=== PATIENT | female | born 1985 | race Caucasian/White ===

== ENCOUNTER 2024-06-15 09:45 | Emergency (ER) | payer MEDICAID ==
[~2024-06-15] VITALS: Ht 165.1 cm; Wt 80.0 kg
[2024-06-15 09:48] VITALS: BP 115/74; PULSE 71; RESP 16; O2SAT 96
[2024-06-15] MEDS ORDERED: CEPH500C2 PO (10:20)
[2024-06-15] MEDS ORDERED: TERB30CR8 TOP (10:20)
[2024-06-15 10:29] VITALS: TEMP 97.8
== END 2024-06-15 10:31 | disposition home or self-care (01) ==
LOC: ER 09:46
DX: L03.115 Cellulitis of right lower limb (principal); Z79.2 Long term (current) use of antibiotics
CPT/HCPCS: 99283

== ENCOUNTER 2024-08-16 21:39 | Emergency (ER) | payer MEDICAID ==
[~2024-08-16] VITALS: Ht 165.1 cm; Wt 75.9 kg
[~2024-08-16 21:39] MED LIST: TERB30CR8 TOP
[2024-08-16 22:32] LABS: BASOPHILS % (AUTO) 0.6 % (0-1); EOSINOPHILS % (AUTO) 0.6 % (0-6); HEMATOCRIT 37.8 % (35.0-45.0); HEMOGLOBIN 13.3 g/dl (12.0-16.0); LYMPHOCYTES # (AUTO) 1.3 X10'3 (1.1-4.8); LYMPHOCYTES % (AUTO) 20.1 % (21-51); MEAN CORPUSCULAR HEMOGLOBIN 30.9 PG (27.0-31.0); MEAN CORPUSCULAR HGB CONC 35.3 g/dL (33.0-36.5); MEAN CORPUSCULAR VOLUME 87.7 FL (78-98); MEAN PLATELET VOLUME 7.8 FL (7.4-10.4); MONOCYTES # (AUTO) 0.5 X10'3 (0-0.9); MONOCYTES % (AUTO) 8.2 % (2-12); NEUTROPHILS # (AUTO) 4.5 X10'3 (1.8-7.7); NEUTROPHILS % (AUTO) 70.5 % (42-75); PLATELET COUNT 362 X10'3 (140-440); RED BLOOD COUNT 4.31 X10'6 (4.20-5.60); RED CELL DISTRIBUTION WIDTH 13.1 % (11.5-14.5); WHITE BLOOD COUNT 6.4 X10'3 (4.5-11.0)
[2024-08-16 22:45] LABS: ALANINE AMINOTRANSFERASE 97 U/L (12-78); ALBUMIN 3.8 G/DL (3.4-5.0); ALKALINE PHOSPHATASE 99 IU/L (46-116); ANION GAP 5 (8-16); ASPARTATE AMINO TRANSFERASE 48 U/L (10-37); BILIRUBIN,TOTAL 0.3 MG/DL (0.1-1.0); BLOOD UREA NITROGEN 8 MG/DL (7-18); BUN/CREATININE RATIO 15.7 (10.0-20.0); CALCIUM 8.7 MG/DL (8.5-10.1); CHLORIDE 106 MMOL/L (99-107); CREATININE 0.51 MG/DL (0.40-0.90); GLUCOSE 98 MG/DL (70-104); POTASSIUM 3.1 MMOL/L (3.5-5.1); SODIUM 139 MMOL/L (135-145); TOTAL CARBON DIOXIDE 28.2 MMOL/L (24-32); TOTAL PROTEIN 7.8 G/DL (6.4-8.2); eCRCL 136 ML/MIN; eGFR > 90 ML/MIN
[2024-08-16 22:53] LABS: ETHANOL < 10 MG/DL (<10); THYROID STIMULATING HORMONE 4.11 ulU/ml (0.34-4.50)
[2024-08-16] MEDS: olanzapine 10mg tablet PO STA (23:11)
[2024-08-16 23:18] LABS: URINE HCG NEGATIVE (NEG)
[2024-08-16 23:20] LABS: ACETAMINOPHEN < 2.0 UG/ML (10-30)
[2024-08-16 23:32] LABS: BILIRUBIN,URINE NEGATIVE (Neg); CLARITY,URINE SLIGHTLY CLOUDY (Clear); COLOR,URINE YELLOW (Yellow); GLUCOSE, URINE NEGATIVE (Neg); KETONES,URINE >=80 mg/dl (Neg); LEUKOCYTE ESTERASE ,URINE NEGATIVE (Neg); NITRITES, URINE NEGATIVE (Neg); OCCULT BLOOD,URINE NEGATIVE (Neg); PH,URINE 6.5 (4.8-8.0); PROTEIN,URINE NEGATIVE (Neg)
[2024-08-16 23:34] LABS: URINE AMPHETAMINE SCREEN POSITIVE (Neg); URINE BARBITUATE SCREEN NEGATIVE (Neg); URINE BENZODIAZEPINES SCREEN NEGATIVE (Neg); URINE CANNABINOID SCREEN NEGATIVE (Neg); URINE COCAINE SCREEN NEGATIVE (Neg); URINE METHADONE SCREEN NEGATIVE (Neg); URINE OPIATE SCREEN NEGATIVE (Neg); URINE PHENCYCLIDINE SCREEN NEGATIVE (Neg)
[2024-08-16 23:47] LABS: UA COLLECTION TYPE VOIDED
[2024-08-16 23:51] LABS: BACTERIA,URINE 2+ /HPF (Neg); SQUAMOUS EPITHELIAL CELL,UR MANY /LPF (FEW)
[2024-08-16 23:52] LABS: RBC,URINE NONE SEEN /HPF (0-2)
[2024-08-17] MEDS: potassium Cl 20 mEq SR tablet PO STA (05:11)
[2024-08-17] MEDS: diphenhydrAMINE 50 mg/ml inj IM ONE (10:53)
[2024-08-17] MEDS: midazolam 1 mg/ML 2ml injection IM ONE (10:53)
[2024-08-17] MEDS: haloperidol lactate 5mg/ml inj IM ONE (10:53)
[2024-08-17 17:15] VITALS: BP 115/82; PULSE 98; RESP 18; TEMP 97.6; O2SAT 99
== END 2024-08-17 17:18 | disposition still patient (30) ==
LOC: ER 21:39
DX: F20.0 Paranoid schizophrenia (principal); F99 Mental disorder, not otherwise specified; Z79.899 Other long term (current) drug therapy; Z20.822 Contact with and (suspected) exposure to COVID-19
CPT/HCPCS: 36415; 80053; 80305; 80320; 80329; 81001; 81025; 84443; 85025; 87811; 96372; 99284; C2617; J1200; J1630; J2250